=== PATIENT | male | born 1980 | race Caucasian/White ===

== ENCOUNTER → 2018-04-08 | Outpatient (CLI) | payer BC ==
[2018-04-08 17:59] LABS: Post Vasectomy Direct Exam Present (Absent)
== END | disposition home or self-care (01) ==
LOC: LABWHC1 08:47
PROVIDERS: ATTEND Family Medicine
DX: Z31.42 Aftercare following sterilization reversal (principal)
CPT/HCPCS: 89321

== ENCOUNTER 2021-05-22 17:47 | Emergency (ER) | payer BC ==
[2021-05-22 18:04] VITALS: TEMP 98
[2021-05-22 19:02] VITALS: BP 135/77; RESP 18
[2021-05-22 19:05] VITALS: PULSE 60
[2021-05-22] MEDS ORDERED: KETOROLAC 15 MG/ML 1 ML VIAL IM STA (19:28)
[2021-05-22] MEDS ORDERED: ASPIRIN 81 MG PO STA (19:28)
[2021-05-22 19:40] LABS: Basophils % (A) 1 %; Eosinophils # (A) 0.1 k/uL (0-0.7); Eosinophils % (A) 2 %; HCT 41.3 % (39.0-53.0); Lymphocytes # (A) 0.8 k/uL (1.0-4.8); Lymphocytes % (A) 20 %; MCH 31.5 pg (25.0-35.0); MCHC 33.9 g/dL (31.0-37.0); MCV 92.9 fL (80.0-100.0); Mean Platelet Volume 7.9; Monocytes # (A) 0.3 k/uL (0-1.0); Monocytes % (A) 8 %; Neutrophils # (A) 2.8 k/uL (1.3-7.7); Neutrophils % (A) 69 %; Platelet Count 221 k/uL (150-450); RBC 4.44 m/uL (4.30-5.90); RDW 12.6 % (11.5-15.5)
[2021-05-22 19:56] LABS: ALT 44 U/L (4-49); AST 42 U/L (17-59); African American GFR (CKD) >90 (>60 ml/min/1.73 sqM); Albumin 4.9 g/dL (3.5-5.0); Alkaline Phosphatase 52 U/L (38-126); Anion Gap 9 mmol/L; Blood Urea Nitrogen 13 mg/dL (9-20); Calcium 9.4 mg/dL (8.4-10.2); Carbon Dioxide 28 mmol/L (22-30); Chloride 99 mmol/L (98-107); Glucose 94 mg/dL (74-99); Magnesium 2.1 mg/dL (1.6-2.3); Non-African American GFR(CKD) >90 (>60 ml/min/1.73 sqM); Potassium 3.9 mmol/L (3.5-5.1); Sodium 136 mmol/L (137-145); Total Bilirubin 0.9 mg/dL (0.2-1.3); Total Protein 7.7 g/dL (6.3-8.2)
[2021-05-22 19:59] LABS: Partial Thromboplastin Time 24.6 sec (22.0-30.0); Prothrombin Time 11.3 sec (9.0-12.0)
--- NOTE | 2021-05-22 20:24 | XR ---
EXAMINATION TYPE: XR chest 2V DATE OF EXAM: 05/22/2021 7:40 PM COMPARISON:None TECHNIQUE: XR chest 2V Frontal and lateral views of the chest. CLINICAL INDICATION:Male, 40 years old with history of Chest Pain; FINDINGS: Lungs/Pleura: Left midlung opacity. The remainder of the lungs are clear. No evidence pneumothorax or pleural effusion. Pulmonary vascularity: Unremarkable. Heart/mediastinum: Cardiomediastinal silhouette is unremarkable. Musculoskeletal: No acute osseous pathology. IMPRESSION: Left midlung opacity could represent developing airspace disease.
--- NOTE | 2021-05-22 20:48 | ED ---
General Adult HPI - General Chief complaint: Chest Pain Stated complaint: Chest pain,SOB Time Seen by Provider: 05/22/21 18:53 Source: patient, RN notes reviewed, old records reviewed Mode of arrival: ambulatory Limitations: no limitations - History of Present Illness Initial comments: Patient is a 40-year-old male with past medical history is not significant for any cardiac disease presents emergency Department complaining of chest pain. Chest pain has been ongoing for approximately one day. Began this morning. Patient is a side sleeper. Describes it as a sharp sensation located just to the right of his breastbone. It is worse with movement and stretching backwards. States he can press on it make it hurt worse. Is concerned is is never expenses pain previously. Does endorse some mild pleurisy with it as well as shortness of breath secondary to the pain. Denies any fevers, chills, cough. Denies any nausea, vomiting, abdominal pain. His no other acute complaints at this time. - Related Data Previous Rx's Medication Instructions Recorded Azithromycin [Zithromax Z-pack (6 0 mg PO DIRECTED 5 Days #6 tab 05/22/21 tabs)] Allergies Allergy/AdvReac Type Severity Reaction Status Date / Time No Known Allergies Allergy Verified 05/22/21 20:53 Review of Systems ROS Statement: Those systems with pertinent positive or pertinent negative responses have been documented in the HPI. Review of Systems: CONST: Denies fever EYES: Denies blurry vision ENT: Denies nasal congestion C/V: Endorses chest pain RESP: Endorses pleurisy GI: Denies abdominal pain : Denies dysuria SKIN: Denies rash. MSK: Denies joint pain. NEURO: Denies headache ROS Other: All systems not noted in ROS Statement are negative. Past Medical History History of Any Multi-Drug Resistant Organisms: None Reported Past Surgical History: Hernia Repair, Orthopedic Surgery Past Psychological History: No Psychological Hx Reported Smoking Status: Never smoker Past Alcohol Use History: None Reported Past Drug Use History: None Reported General Exam - General Exam Comments Initial Comments: General: Appears in no acute distress. HEAD: Normal with no signs of head trauma. EYES: PERRLA, EOMI, conjunctiva normal, no discharge. ENT: Hearing grossly intact, normal oropharynx. RESPIRATORY: Clear breath sounds bilaterally. No wheezes, rales, or rhonchi. C/V: Regular rate and rhythm. S1 and S2 auscultated, no edema, peripheral pulses 2+ and intact throughout. Chest pain is reproducible on palpation over the right inferior anterior ribs. ABD: Abd is soft, nontender, nondistended EXT: Normal range of motion, no obvious deformity SKIN: No rashes or lesions observed on exposed skin. NEURO: Alert and oriented 4. Limitations: no limitations Course Vital Signs 05/22/21 05/22/21 05/22/21 18:01 18:58 19:01 Temperature 98 F Pulse Rate 74 68 Pulse Rate [ 60 [employer] ] Respiratory 16 18 Rate Blood Pressure 134/81 135/77 O2 Sat by Pulse 100 99 Oximetry Medical Decision Making - Medical Decision Making Based on the patient's presentation and physical exam, I'm concerned for possible cardiopulmonary etiology for his current symptoms. As he is having pl euritic chest pain which is likely chest wall pain from something like costochondritis but cannot rule out other etiologies at this time. Therefore cardiac workup will be obtained including troponin, d-dimer. Patient was in agreement this plan. EKG shows no signs of acute ischemia. Chest x-ray reveals a possible developing left midlung opacity suspicious for pneumonia. Laboratory studies are remarkable for a d-dimer within normal limits at 0.22 as well as an undetectable troponin. On reevaluation, patient is feeling improved. I did discuss the findings with him. Heart score is 0. I believe it is safe for him to be discharged home at this time. We did discuss costochondritis as well as is pneumonia. He is having mild symptoms he states, having URI-type symptoms. Therefore he will be provided with azithromycin, which will be sent to his pharmacy. He was in agreement this plan. I will provide the patient with a prescription for azithromycin. I instructed the patient to follow up with their PCP in the next 3 days. I explained that the patient should return to the emergency department if they experience any worsening symptoms. Strict return precautions were discussed with the patient. The patient expressed understanding of these instructions. I answered all questions that the patient had. The patient was discharged home in good condition with their prescriptions and follow up information. - Lab Data Result diagrams: 05/22/21 19:28 05/22/21 19:28 Lab Results 05/22/21 05/22/21 05/22/21 Range/Units 19:28 19:28 19:28 WBC 4.0 (3.8-10.6) k/uL RBC 4.44 (4.30-5.90) m/uL Hgb 14.0 (13.0-17.5) gm/dL Hct 41.3 (39.0-53.0) % MCV 92.9 (80.0-100.0) fL MCH 31.5 (25.0-35.0) pg MCHC 33.9 (31.0-37.0) g/dL RDW 12.6 (11.5-15.5) % Plt Count 221 (150-450) k/uL MPV 7.9 Neutrophils % 69 % Lymphocytes % 20 % Monocytes % 8 % Eosinophils % 2 % Basophils % 1 % Neutrophils # 2.8 (1.3-7.7) k/uL Lymphocytes # 0.8 L (1.0-4.8) k/uL Monocytes # 0.3 (0-1.0) k/uL Eosinophils # 0.1 (0-0.7) k/uL Basophils # 0.0 (0-0.2) k/uL PT 11.3 (9.0-12.0) sec INR 1.0 (<1.2) APTT 24.6 (22.0-30.0) sec D-Dimer 0.22 (<0.60) mg/L FEU Sodium 136 L (137-145) mmol/L Potassium 3.9 (3.5-5.1) mmol/L Chloride 99 (98-107) mmol/L Carbon Dioxide 28 (22-30) mmol/L Anion Gap 9 mmol/L BUN 13 (9-20) mg/dL Creatinine 0.90 (0.66-1.25) mg/dL Est GFR (CKD-EPI)AfAm >90 (>60 ml/min/1.73 sqM) Est GFR (CKD-EPI)NonAf >90 (>60 ml/min/1.73 sqM) Glucose 94 (74-99) mg/dL Calcium 9.4 (8.4-10.2) mg/dL Magnesium 2.1 (1.6-2.3) mg/dL Total Bilirubin 0.9 (0.2-1.3) mg/dL AST 42 (17-59) U/L ALT 44 (4-49) U/L Alkaline Phosphatase 52 (38-126) U/L Troponin I (0.000-0.034) ng/mL Total Protein 7.7 (6.3-8.2) g/dL Albumin 4.9 (3.5-5.0) g/dL 05/22/21 Range/Units 19:28 WBC (3.8-10.6) k/uL RBC (4.30-5.90) m/uL Hgb (13.0-17.5) gm/dL Hct (39.0-53.0) % MCV (80.0-100.0) fL MCH (25.0-35.0) pg MCHC (31.0-37.0) g/dL RDW (11.5-15.5) % Plt Count (150-450) k/uL MPV Neutrophils % % Lymphocytes % % Monocytes % % Eosinophils % % Basophils % % Neutrophils # (1.3-7.7) k/uL Lymphocytes # (1.0-4.8) k/uL Monocytes # (0-1.0) k/uL Eosinophils # (0-0.7) k/uL Basophils # (0-0.2) k/uL PT (9.0-12.0) sec INR (<1.2) APTT (22.0-30.0) sec D-Dimer (<0.60) mg/L FEU Sodium (137-145) mmol/L Potassium (3.5-5.1) mmol/L Chloride (98-107) mmol/L Carbon Dioxide (22-30) mmol/L Anion Gap mmol/L BUN (9-20) mg/dL Creatinine (0.66-1.25) mg/dL Est GFR (CKD-EPI)AfAm (>60 ml/min/1.73 sqM) Est GFR (CKD-EPI)NonAf (>60 ml/min/1.73 sqM) Glucose (74-99) mg/dL Calcium (8.4-10.2) mg/dL Magnesium (1.6-2.3) mg/dL Total Bilirubin (0.2-1.3) mg/dL AST (17-59) U/L ALT (4-49) U/L Alkaline Phosphatase (38-126) U/L Troponin I <0.012 (0.000-0.034) ng/mL Total Protein (6.3-8.2) g/dL Albumin (3.5-5.0) g/dL - EKG Data -: EKG Interpreted by Me EKG Comments: 12-lead Electrocardiogram Interpretation Note EKG was reviewed and interpreted by myself. 12-lead ECG performed at 1809 is in terpreted by me as revealing normal sinus rhythm at a rate of 61 beats per minute. [place] is normal. [place] interval is 137 ms, QRS duration is 92 ms, QTc is 404 ms.. There were no ST or T wave abnormalities to suggest myocardial ischemia or injury. R wave progression across the precordium was satisfactory. By my interpretation this EKG is non-diagnostic for acute ischemia. Disposition Clinical Impression: Chest wall pain, Costochondritis, CAP (community acquired pneumonia) Disposition: HOME SELF-CARE Condition: Good Instructions (If sedation given, give patient instructions): Costochondritis (ED), Community Acquired Pneumonia (ED) Prescriptions: Azithromycin [Zithromax Z-pack (6 tabs)] 0 mg PO DIRECTED 5 Days #6 tab Is patient prescribed a controlled substance at d/c from ED?: No Referrals: Keiko Stephenson MD [Primary Care Provider] - 1-2 days
== END 2021-05-22 23:03 | disposition home or self-care (01) ==
LOC: EC 17:47
DX: M94.0 Chondrocostal junction syndrome [Tietze] (principal); J18.9 Pneumonia, unspecified organism
CPT/HCPCS: 99285; 96372; 36415; 93005; 85379; 80053; 83735; 84484; 85025; 85610; 85730; 71046; J1885

== ENCOUNTER → 2022-04-07 | Outpatient (CLI) | payer BC | END | disposition home or self-care (01) | LOC: LABWHC1 15:30 | PROVIDERS: ATTEND Family Medicine | DX: Z53.9 Procedure and treatment not carried out, unspecified reason (principal) ==

== ENCOUNTER 2023-01-25 06:09 | Day surgery (SDC) | payer BC ==
[~2023-01-25 06:09] MED LIST: ACETAMINOPHEN TAB 500 MG TAB PO PRN; HEPARIN SODIUM,PORCINE/PF 5,000 UNIT/0.5 ML SYRINGE SQ PRN; Pre Op ABX Message 1 EACH MISC MISCELLANE ONE
[2023-01-25] MEDS ORDERED: SCOPOLAMINE 1 MG/72 HR PATCH TRANSDERM ONE (06:40)
[2023-01-25] MEDS ORDERED: DEXAMETHASONE SOD PHOSPHATE 4 MG/ML 1 ML VIAL IV ONE (06:40)
[2023-01-25] MEDS ORDERED: ONDANSETRON 4 MG/2 ML VIAL IVP ONE (06:40)
[2023-01-25] MEDS ORDERED: LACTATED RINGERS 1,000 ML IV SCH (06:40)
[2023-01-25 06:52] VITALS: TEMP 98.3
[2023-01-25] MEDS ORDERED: HYDROmorphone 0.5 MG/0.5 ML SYRINGE IVP PRN (07:00)
[2023-01-25] MEDS ORDERED: MIDAZOLAM 2 MG/2 ML VIAL IV PRN (07:00)
[2023-01-25] MEDS ORDERED: PROPOFOL 10 MG/ML 20 ML VIAL IV ONE (07:25)
[2023-01-25] MEDS ORDERED: fentaNYL (PF) 50 MCG/ML 2 ML AMP ONE (07:25)
[2023-01-25] MEDS ORDERED: KETAMINE HCL IN 0.9 % NACL 50 MG/5 ML SYRINGE ONE (07:25)
[2023-01-25] MEDS ORDERED: MIDAZOLAM 2 MG/2 ML VIAL ONE (07:25)
--- NOTE | 2023-01-25 07:28 | P.GSHP ---
History of Present Illness H&P Date: 01/25/23 Chief Complaint: Left back lipoma 42-year-old male here today for excision left back lipoma. Increasing in size since it was found during a massaged. Mild soreness at times. No history of similar findings. Past Medical History Additional Past Medical History / Comment(s): seen by cardiology earlier this year and was cleared of any issues. had stress test. HR low 44-45 resting. lipoma upper left back History of Any Multi-Drug Resistant Organisms: None Reported Past Surgical History: Hernia Repair, Orthopedic Surgery Additional Past Surgical History / Comment(s): left inguinal open with mesh. shoulder AC jt reconstruction. colonoscopy- small blood in stool - negative. wisdom teeth Past Anesthesia/Blood Transfusion Reactions: No Reported Reaction Smoking Status: Former smoker, Light tobacco smoker - Past Family History Father Family Medical History: Diabetes Mellitus Medications and Allergies Home Medications Medication Instructions Recorded Confirmed Type Unk Multi Vitamin 1 tab PO HS 01/20/23 01/20/23 History Allergies Allergy/AdvReac Type Severity Reaction Status Date / Time SSRI Allergy muscle Uncoded 01/25/23 06:45 spasm and teeth grinding Surgical - Exam Vital Signs Temp Pulse Resp BP Pulse Ox 98.3 F 80 16 141/81 97 01/25/23 06:46 01/25/23 06:46 01/25/23 06:46 01/25/23 06:46 01/25/23 06:46 Physical exam: General: Well-developed, well-nourished HEENT: Normocephalic, sclerae nonicteric Abdomen: Nontender, nondistended Extremities: No edema, left upper back with 5 x 6 cm mobile lipomatous mass Neuro: Alert and oriented Assessment and Plan (1) Lipoma of back Narrative/Plan: We'll proceed with surgical excision left back lipoma. Risks of bleeding, infection, seroma, recurrence reviewed. He understands wishes to proceed. Current Visit: Yes Status: Acute Code(s): D17.1 - BENIGN LIPOMATOUS NEOPLASM OF SKIN, SUBCU OF TRUNK SNOMED Code(s): 971617028
[2023-01-25] MEDS ORDERED: BUPIVACAINE (PF) 0.25% 30 ML VIAL SQ ONE (07:30)
[2023-01-25] MEDS ORDERED: NALOXONE 0.4 MG/ML 1 ML VIAL IV PRN (08:16)
[2023-01-25] MEDS ORDERED: traMADol 50 MG TAB PO PRN (08:16)
--- NOTE | 2023-01-25 08:21 | P.OP ---
Date of Procedure: 01/25/23 Procedure(s) Performed: PREOPERATIVE DIAGNOSIS: Left back lipoma POSTOPERATIVE DIAGNOSIS: Left subfascial back lipoma PROCEDURE: Excision left back lipoma with intermediate closure SURGEON: Sandra EBL: 5 mL ANESTHESIA: Local and sedation COMPLICATIONS: None OPERATIVE PROCEDURE: Patient placed in the right decubitus position. The patient was sedated fascia that time. The left upper back was prepped and draped sterilely. An oblique incision was made overlying the palpable mass. Dissection through the subcutaneous tissues took place using electrocautery. The mass was present beneath the superficial fascia. This was fully excised using blunt dissection and cautery. This measured 6 x 4 cm in size. The subcutaneous tissues were irrigated. They were then closed using interrupted 3- 0 Vicryl sutures. The skin was then closed using a running 4-0 Monocryl stitch. Skin glue and sterile dressings were applied. Length of intermediate closure 5 cm. DISPOSITION: Stable to recovery room
[2023-01-25 08:30] VITALS: RESP 18
[2023-01-25 08:53] VITALS: BP 108/66; PULSE 63
== END 2023-01-25 09:24 | disposition home or self-care (01) ==
LOC: OR 06:09
PROVIDERS: ATTEND Surgery
DX: D17.1 Benign lipomatous neoplasm of skin and subcutaneous tissue of trunk (principal); Z87.891 Personal history of nicotine dependence; Z83.3 Family history of diabetes mellitus; Z79.899 Other long term (current) drug therapy; Z88.8 Allergy status to other drugs, medicaments and biological substances
CPT/HCPCS: 88304; 21931; J2250; J1100; J0690; J2405; J3010; J2704; J1644; J0665